=== PATIENT | male | born 1995 | race Hispanic/Latino ===

== ENCOUNTER 2017-11-25 12:51 | Emergency (ER) | payer OTHER ==
[~2017-11-25] VITALS: Ht 175.3 cm; Wt 64.4 kg
[~2017-11-25 12:51] MED LIST: ALEVE220 M1 PO; CYCLOBENZAPRINE10 M1 PO; INDOMETHACIN25 M1 PO; MELOXICAM15 M1 PO; TYLENOL325 M1 PO
[2017-11-25 13:25] VITALS: BP 161/98
== END 2017-11-25 13:56 | disposition admitted as inpatient to this hospital (09) ==
LOC: ERH 12:51
DX: I31.9 Disease of pericardium, unspecified (principal)